=== PATIENT | female | born 1985 | race Two or more races ===

== ENCOUNTER 2018-10-26 15:39 | Inpatient (IN) | payer OTHER ==
[2018-10-26 16:25] VITALS: BMI 29.6
--- NOTE | 2018-10-26 16:35 | HP ---
CIWA Score Nausea/Vomitin Muscle Tremors: 2 Anxiety: 3 Agitation: 2 Paroxysmal Sweats: 1-Minimal Palms Moist Orientation: 1-Uncertain about Date Tacttile Disturbances: 0-None Auditory Disturbances: 1-Very Mild Visual Disturbances: 0-None Headache: 0-None Present CIWA-Ar Total Score: 13 - Admission Criteria OASAS Guidelines: Admission for Medically Managed Detox: Requires at least one of the followin. CIWA greater than 12 2. Seizures within the past 24 hours 3. Delirium tremens within the past 24 hours 4. Hallucinations within the past 24 hours 5. Acute intervention needed for co occurring medical disorder 6. Acute intervention needed for co occurring psychiatric disorder 7. Severe withdrawal that cannot be handled at a lower level of care (continued vomiting, continued diarrhea, abnormal vital signs) requiring intravenous medication and/or fluids 8. 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 Reports her shafting cleaner from ACS case mandated patient to attend. Last detox [facility] in out patient tx for alcohol, last detox May 2018. PMHX: stomach ulcer, ovarian cyst, asthma, heart murmur, hypoglycemia, insomnia, bipolar I, PTSD, manic depression. Currently resides in a longterm. Denies suicidal / homicidal ideation. Reports hx of suicide on 2017 by over consumption alcohol and Meds. Denies hx of seizures, reports frequent EOTH blackouts with last episode Summer 2017. Longest period of sobriety 19 months 2010 - 2011. Exam Limitations: No Limitations - Ebola screening Have you traveled outside of the country in the last 21 days: No Have you had contact with anyone from an Ebola affected area: No Have you been sick,other than usual withdrawal symptoms: No - Review of Systems Constitutional: Changes in sleep, Other (weight gain 10 lb x 1 month) EENT: reports: No Symptoms Reported Respiratory: reports: No Symptoms reported Cardiac: reports: Palpitations, Other (reports chest pain when anxious, no CP this time) GI: reports: Diarrhea, Nausea, Poor Fluid Intake, Vomiting, Other (seen at [facility] for possible GI bleed which resulted negative) : reports: Hematuria Musculoskeletal: reports: Back Pain Integumentary: reports: Other (mild adult acnea) Neuro: reports: Other (" I shake when I dont drink") Endocrine: reports: Increased Thirst Hematology: reports: Anemia Psychiatric: reports: Orientated x3, Anxious, Depressed Other Systems: Reviewed and Negative Patient History - Patient Medical History Hx Anemia: Yes Hx Asthma: Yes Hx Chronic Obstructive Pulmonary Disease (COPD): No Hx Cancer: No Hx Cardiac Disorders: No (heart murmur ) Hx Congestive Heart Failure: No Hx Hypertension: No Hx Hypercholesterolemia: No Hx Pacemaker: No HX Cerebrovascular Accident: No Hx Seizures: No Hx Dementia: No Hx Diabetes: No Hx Gastrointestinal Disorders: Yes (GERD ) Hx Liver Disease: No Hx Genitourinary Disorders: Yes (ovarian cyst b/l ) Hx Sexually Transmitted Disorders: No Hx Renal Disease (ESRD): No Hx Thyroid Disease: No Hx Human Immunodeficiency Virus (HIV): No Hx Hepatitis C: No Hx Depression: Yes Hx Suicide Attempt: Yes Hx Bipolar Disorder: Yes Hx Schizophrenia: No - Patient Surgical History Past Surgical History: Yes Hx Appendectomy: Yes (11 yo, 1996) Hx Section: Yes (x1 2007) - PPD History Previous Implant?: No Documented Results: Negative w/o proof Implanted On Prior R Admission?: No PPD to be Administered?: Yes - Reproductive History Patient is a Female of Child Bearing Age (11 -55 yrs old): Yes Last Menstrual Period: 10/26/18 Patient : No - Smoking Cessation Smoking history: Current every day smoker Have you smoked in the past 12 months: Yes Aproximately how many cigarettes per day: 20 Hx Chewing Tobacco Use: No Initiated information on smoking cessation: Yes 'Breaking Loose' booklet given: 10/26/18 - Substance & Tx. History Hx Alcohol Use: Yes Hx Substance Use: Yes Substance Use Type: Alcohol, Marijuana Hx Substance Use Treatment: Yes (last detox May 2018 [facility] ) - Substances Abused Alcohol Route: Oral Frequency: Daily Amount used: 1 1/2 pint liquor Age of first use: 15 Date of Last Use: 10/26/18 marijuana Route: Smoking Frequency: 1-2 times per week Age of first use: 14 Date of Last Use: 10/25/18 Family Disease History - Family Disease History Family Disease History: Diabetes: Father () Admission Physical Exam [facility] - Vital Signs Vital Signs: Vital Signs - 24 hr 10/26/18 16:22 Temperature 97.7 F Pulse Rate 115 H Respiratory 20 Rate Blood Pressure 129/80 - Physical General Appearance: Yes: Appropriately Dressed, Sweating, Anxious HEENTM: Yes: EOMI, Hearing grossly Normal, Normal ENT Inspection, Pharynx Normal , Other (dry mucous memebranes) Respiratory: Yes: Chest Non-Tender, Lungs Clear, Normal Breath Sounds, No Respiratory Distress, No Accessory Muscle Use Neck: Yes: Within Normal Limits Breast: Yes: Breast Exam Deferred Cardiology: Yes: Regular Rhythm, Tachycardia Abdominal: Yes: Normal Bowel Sounds, Non Tender, Flat, Soft Genitourinary: Yes: Within Normal Limits Back: Yes: Normal Inspection Musculoskeletal: Yes: full range of Motion, Gait Steady, Pelvis Stable Extremities: Yes: Normal Capillary Refill, Normal Inspection, Normal Range of Motion Neurological: Yes: 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 NML intact, Fully Oriented, Alert, Motor Strength 5/5, Depressed Affect Integumentary: Yes: Normal Color, Dry, Warm Lymphatic: Yes: Within Normal Limits - Diagnostic (1) Alcohol dependence with withdrawal, uncomplicated Current Visit: Yes Status: Acute (2) Asthma Current Visit: Yes Status: Chronic Qualifiers: Asthma severity: unspecified severity Asthma persistence: unspecified Asthma complication type: unspecified Qualified Code(s): J45.909 - Unspecified asthma, uncomplicated (3) Anxious mood Current Visit: Yes Status: Acute (4) Nicotine dependence Current Visit: Yes Status: Acute Qualifiers: Nicotine product type: cigarettes (5) Marijuana dependence Current Visit: Yes Status: Acute (6) Psychiatric disorder Current Visit: Yes Status: Acute Comment: on seroquel and remeron Cleared for Admission [facility] - Detox or Rehab [facility] Level of Care: Medically Managed Detox Regimen/Protocol: Librium [facility] Breath Alcohol Content Breath Alcohol Content: 0.278 Urine Pregancy Test - Result Urine Test Results: Negative- NO Line Present Urine Drug Screen - Results Drug Screen Negative: No Urine Drug Screen Results: THC-Marijuana Inpatient Rehab Admission - Rehab Decision to Admit Inpatient rehab admission?: No
[2018-10-26] MEDS ORDERED: MAGNESIUM CITRATE 300 ML BOTTLE PO PRN (16:56)
[2018-10-26] MEDS ORDERED: ACETAMINOPHEN 325 MG TABLET (FP) PO PRN (16:56)
[2018-10-26] MEDS ORDERED: P-EPHED 60MG/TRIPROLIDI 2.5MG TABLET PO PRN (16:56)
[2018-10-26] MEDS ORDERED: MAGNESIUM HYDROX 2400MG/30ML ORAL SUSPENSION 30 ML CUP PO PRN (16:56)
[2018-10-26] MEDS ORDERED: LOPERAMIDE HCL 2 MG CAPSULE PO PRN (16:56)
[2018-10-26] MEDS ORDERED: MENTHOL/PHENOL 1 EACH UD MM PRN (16:56)
[2018-10-26] MEDS ORDERED: MAG HYDROX/AL HYDROX/SIMETH 30 ML UNIT-DOSE CUP PO PRN (16:56)
[2018-10-26] MEDS ORDERED: guaiFENesin/D-METHORPHAN HB 10 ML UNIT-DOSE CUPS PO PRN (16:56)
[2018-10-26] MEDS ORDERED: NICOTINE POLACRILEX 2 MG GUM BC PRN (16:56)
[2018-10-26] MEDS ORDERED: IBUPROFEN 400 MG TABLET (FP) PO PRN (16:56)
[2018-10-26] MEDS ORDERED: ALBUTEROL SO4 8 GM HFA INHALER IH PRN (17:00)
[2018-10-26] MEDS ORDERED: ALBUTEROL SO4 2.5/IPRATROPIUM 0.5 INH SOL 3 ML VIAL.NEB. NEB PRN (17:44)
[2018-10-26] MEDS ORDERED: cloNIDine HCL 0.1 MG TABLET PO ONE (17:45)
[2018-10-26] MEDS: chlordiazePOXIDE HCL 25 MG CAPSULE PO PRN (18:42)
[2018-10-26] MEDS: chlordiazePOXIDE HCL 25 MG CAPSULE PO SCH (22:31)
[2018-10-26] MEDS: MELATONIN 5 MG TABLETS PO PRN (22:31)
[2018-10-26] MEDS: THIAMINE HCL 100 MG TABLET (FP) PO SCH (22:31)
[2018-10-26] MEDS: hydrOXYzine PAMOATE 50 MG CAPSULE (FP) PO PRN (23:36)
[2018-10-27] MEDS: chlordiazePOXIDE HCL 25 MG CAPSULE PO SCH ×4 (05:49→22:09)
--- NOTE | 2018-10-27 07:36 | CONSULT ---
[facility] Psychiatric Consult - Data Date of interview: 10/27/18 Admission source: [facility] Identifying data: This is a 33 years old female, single mother of two, homeless , unemployed, on PA support, with psychiatric hospitalization history, history of Bipolar Disorder, with history of nicotine, alcohol and marijuana dependence is here reporting Alcohol withdeawal symptoms and seeking detox. Substance Abuse History: Smoking history: Current every day smoker. Have you smoked in the past 12 months: Yes. Aproximately how many cigarettes per day: 20. Hx Chewing Tobacco Use: No. Initiated information on smoking cessation: Yes. 'Breaking Loose' booklet given: 10/26/18. - Substance & Tx. History. Hx Alcohol Use: Yes. Hx Substance Use: Yes. Substance Use Type: Alcohol, Marijuana. Hx Substance Use Treatment: Yes (last detox May 2018 [facility] ). - Substances Abused. Alcohol. Route: Oral. Frequency: Daily. Amount used: 1 1/2 pint liquor. Age of first use: 15. Date of Last Use: 10/26/18. marijuana. Route: Smoking. Frequency: 1-2 times per week. Age of first use: 14. Date of Last Use: 10/25/18 Medical History: Asthma history Psychiatric History: Patient reports history of Bipolar Disorder and PTSD, reports history of psychiatric hospitalizations with most recent one at [facility] on for safety, Patient reports history of suicidal attempts by OD and Alcohol with most recent time on , denies suicidfal, homicidal ideation at [facility] time, Patient reports taking prior to admission: Remerone 30mg po qhs. Seroquel 200mg po qhs Physical/Sexual Abuse/Trauma History: Unclear Additional Comment: Remerone 30mg po qhs. Seroquel 200mg po qhs Mental Status Exam - Mental Status Exam Alert and Oriented to: Person Cognitive Function: Fair Patient Appearance: Unkempt Mood: Sad Affect: Mood Congruent Patient Behavior: Cooperative Speech Pattern: Appropriate, Delayed Voice Loudness: Mildly Soft/Quiet Thought Process: Goal Oriented Thought Disorder: Being Controlled Hallucinations: Denies Suicidal Ideation: Denies Homicidal Ideation: Denies Insight/Judgement: Fair Sleep: Difficulty falling asleep Appetite: Fair Muscle strength/Tone: Mild Hypotonicity Gait/Station: Shuffling Additional Comments: Remerone 30mg po qhs. Seroquel 200mg po qhs. Haldol 1mg po prn q4 for anxiety Psychiatric Findings - Problem List ([place] 1, 2,3) (1) Alcohol dependence with withdrawal, uncomplicated Current Visit: Yes Status: Acute (2) Marijuana dependence Current Visit: Yes Status: Acute (3) Nicotine dependence Current Visit: Yes Status: Acute Qualifiers: Nicotine product type: cigarettes (4) Asthma Current Visit: Yes Status: Chronic Qualifiers: Asthma severity: unspecified severity Asthma persistence: unspecified Asthma complication type: unspecified Qualified Code(s): J45.909 - Unspecified asthma, uncomplicated - Initial Treatment Plan Initial Treatment Plan: Remerone 30mg po qhs. Seroquel 200mg po qhs. Haldol 1mg po prn q4 for anxiety
[2018-10-27] MEDS: hydrOXYzine PAMOATE 50 MG CAPSULE (FP) PO PRN (09:36)
[2018-10-27] MEDS: PRENATAL VITAMINS W/ FOLIC ACID TABLET (FP) PO SCH (10:11)
[2018-10-27] MEDS: NICOTINE 21 MG/24 HOURS TOPICAL PATCH TD SCH (10:11)
[2018-10-27] MEDS: HALOPERIDOL 1 MG TABLET (FP) PO PRN ×2 (10:14→22:09)
[2018-10-27 10:56] LABS: ALBUMIN 3.4 g/dl (3.4-5.0); ALK PHOS 68 U/L (45-117); ANION GAP 3 MMOL/L (8-16); BILIRUBIN,TOTAL 0.7 mg/dL (0.2-1); BLOOD UREA NITROGEN 8 mg/dL (7-18); CALCIUM 8.7 mg/dL (8.5-10.1); CHLORIDE 99 mmol/L (98-107); CO2 34 mmol/L (21-32); CREATININE 0.6 mg/dL (0.55-1.3); GLUCOSE,RANDOM 89 mg/dL (74-106); POTASSIUM 3.5 mmol/L (3.5-5.1); SGOT/AST 64 U/L (15-37); SGPT/ALT 52 U/L (13-61); SODIUM 136 mmol/L (136-145); TOT PROT 6.7 g/dl (6.4-8.2)
[2018-10-27 11:01] LABS: HEMATOCRIT 37.5 % (32.4-45.2); HEMOGLOBIN 12.7 GM/dL (10.7-15.3); MCHC 33.9 g/dl (32.0-36.0); MEAN CELL VOLUME 103.2 fl (80-96); MEAN PLT VOLUME 8.7 fl (7.5-11.1); PLATELET COUNT 189 K/MM3 (134-434); RBC 3.64 M/mm3 (3.60-5.2); RDW 14.1 % (11.6-15.6); WHITE BLOOD COUNT 3.4 K/mm3 (4.0-10.0)
--- NOTE | 2018-10-27 12:01 | PN ---
S CIWA - CIWA Score Nausea/Vomitin-No Nausea/No Vomiting Muscle Tremors: 3 Anxiety: 3 Agitation: 3 Paroxysmal Sweats: 3 Orientation: 0-Oriented Tacttile Disturbances: 0-None Auditory Disturbances: 0-None Visual Disturbances: 0-None Headache: 0-None Present CIWA-Ar Total Score: 12 [facility] Progress Note (SOAP) Subjective: muscle aches sweats anxiety Objective: 10/27/18 12:00 Vital Signs Temperature 98.1 F 10/27/18 07:00 Pulse Rate 75 10/27/18 07:00 Respiratory Rate 16 10/27/18 07:00 Blood Pressure 121/91 10/27/18 07:00 O2 Sat by Pulse Oximetry (%) Laboratory Tests 10/27/18 10/27/18 10/27/18 05:51 08:00 08:00 WBC 3.4 L RBC 3.64 Hgb 12.7 Hct 37.5 MCV 103.2 H MCH 35.0 H MCHC 33.9 RDW 14.1 Plt Count 189 MPV 8.7 Sodium 136 Potassium 3.5 Chloride 99 Carbon Dioxide 34 H Anion Gap 3 L BUN 8 Creatinine 0.6 Creat Clearance w eGFR > 60 POC Glucometer 121 Random Glucose 89 Calcium 8.7 Total Bilirubin 0.7 AST 64 H ALT 52 Alkaline Phosphatase 68 Total Protein 6.7 Albumin 3.4 RPR Titer 10/27/18 08:00 WBC RBC Hgb Hct MCV MCH MCHC RDW Plt Count MPV Sodium Potassium Chloride Carbon Dioxide Anion Gap BUN Creatinine Creat Clearance w eGFR POC Glucometer Random Glucose Calcium Total Bilirubin AST ALT Alkaline Phosphatase Total Protein Albumin RPR Titer Nonreactive aaox3 ambulating no acute distress Assessment: 10/27/18 12:01 withdrawal sx Plan: continue detox increase fluids flexiril 10mg prn
[2018-10-27] MEDS: CYCLOBENZAPRINE HCL 10 MG TABLET (FP) PO PRN ×2 (15:53→22:09)
[2018-10-27] MEDS: chlordiazePOXIDE HCL 25 MG CAPSULE PO PRN (19:43)
[2018-10-27] MEDS: MELATONIN 5 MG TABLETS PO PRN (22:09)
[2018-10-27] MEDS: MIRTAZAPINE 30 MG TABLET (FP) PO SCH (22:10)
[2018-10-27] MEDS: THIAMINE HCL 100 MG TABLET (FP) PO SCH (22:10)
[2018-10-27] MEDS: QUEtiapine FUMARATE 200 MG TABLET PO SCH (22:10)
--- NOTE | 2018-10-28 02:38 | EKG ---
Test Reason : Blood Pressure : / mmHG Vent. Rate : 095 BPM Atrial Rate : 095 BPM P-R Int : 120 ms QRS Dur : 084 ms QT Int : 342 ms P-R-T Axes : 023 081 042 degrees QTc Int : 429 ms NORMAL SINUS RHYTHM NORMAL ECG NO PREVIOUS ECGS AVAILABLE Confirmed by KOKO LAMAS MD ([id number]) on 10/28/2018 2:38:22 AM Referred By: BENJAMIN CARDOZA Confirmed By:KOKO LAMAS MD
[2018-10-28] MEDS: chlordiazePOXIDE HCL 25 MG CAPSULE PO SCH ×3 (05:52→16:30)
[2018-10-28] MEDS: CYCLOBENZAPRINE HCL 10 MG TABLET (FP) PO PRN (05:54)
[2018-10-28] MEDS: HALOPERIDOL 1 MG TABLET (FP) PO PRN ×3 (05:55→16:30)
[2018-10-28] MEDS: NICOTINE 21 MG/24 HOURS TOPICAL PATCH TD SCH (10:28)
[2018-10-28] MEDS: PRENATAL VITAMINS W/ FOLIC ACID TABLET (FP) PO SCH (10:28)
--- NOTE | 2018-10-28 10:35 | PN ---
S CIWA - CIWA Score Nausea/Vomitin-No Nausea/No Vomiting Muscle Tremors: 3 Anxiety: 3 Agitation: 3 Paroxysmal Sweats: 3 Orientation: 0-Oriented Tacttile Disturbances: 0-None Auditory Disturbances: 0-None Visual Disturbances: 0-None Headache: 0-None Present CIWA-Ar Total Score: 12 BHS Progress Note (SOAP) Subjective: skin itchy sweats tired the seroquel is making me too sedated Objective: 10/28/18 10:33 Vital Signs Temperature 97.9 F 10/28/18 09:32 Pulse Rate 79 10/28/18 09:32 Respiratory Rate 18 10/28/18 09:32 Blood Pressure 118/77 10/28/18 09:32 O2 Sat by Pulse Oximetry (%) Laboratory Tests 10/27/18 10/27/18 10/27/18 05:51 08:00 08:00 WBC 3.4 L RBC 3.64 Hgb 12.7 Hct 37.5 MCV 103.2 H MCH 35.0 H MCHC 33.9 RDW 14.1 Plt Count 189 MPV 8.7 Sodium 136 Potassium 3.5 Chloride 99 Carbon Dioxide 34 H Anion Gap 3 L BUN 8 Creatinine 0.6 Creat Clearance w eGFR > 60 POC Glucometer 121 Random Glucose 89 Calcium 8.7 Total Bilirubin 0.7 AST 64 H ALT 52 Alkaline Phosphatase 68 Total Protein 6.7 Albumin 3.4 RPR Titer 10/27/18 10/28/18 08:00 05:51 WBC RBC Hgb Hct MCV MCH MCHC RDW Plt Count MPV Sodium Potassium Chloride Carbon Dioxide Anion Gap BUN Creatinine Creat Clearance w eGFR POC Glucometer 119 Random Glucose Calcium Total Bilirubin AST ALT Alkaline Phosphatase Total Protein Albumin RPR Titer Nonreactive aaox3 ambulating no acute distress Assessment: 10/28/18 10:34 withdrawal sx Plan: increase fluids aveeno soap benadryl 25mg x one continue detox
[2018-10-28] MEDS ORDERED: diphenhydrAMINE HCL 25 MG CAPSULE (FP) PO ONE (10:45)
[2018-10-28] MEDS: COLLOIDAL OATMEAL 1 BAR EACH TP PRN (10:56)
[2018-10-28] MEDS: hydrOXYzine PAMOATE 50 MG CAPSULE (FP) PO PRN (18:25)
[2018-10-28] MEDS: MIRTAZAPINE 30 MG TABLET (FP) PO SCH (22:13)
[2018-10-28] MEDS: chlordiazePOXIDE 5 MG CAPSULE PO SCH (22:13)
[2018-10-28] MEDS: QUEtiapine FUMARATE 200 MG TABLET PO SCH (22:13)
[2018-10-28] MEDS: THIAMINE HCL 100 MG TABLET (FP) PO SCH (22:13)
[2018-10-29] MEDS: chlordiazePOXIDE 5 MG CAPSULE PO SCH ×3 (05:52→17:36)
[2018-10-29] MEDS: CYCLOBENZAPRINE HCL 10 MG TABLET (FP) PO PRN ×2 (10:42→22:12)
[2018-10-29] MEDS: PRENATAL VITAMINS W/ FOLIC ACID TABLET (FP) PO SCH (10:42)
[2018-10-29] MEDS: HALOPERIDOL 1 MG TABLET (FP) PO PRN ×2 (10:42→22:12)
[2018-10-29] MEDS: NICOTINE 21 MG/24 HOURS TOPICAL PATCH TD SCH (10:43)
--- NOTE | 2018-10-29 11:56 | PN ---
BHS Progress Note (SOAP) Subjective: feeling better sweats Objective: 10/29/18 11:55 Vital Signs Temperature 97.7 F 10/29/18 09:02 Pulse Rate 87 10/29/18 09:02 Respiratory Rate 18 10/29/18 09:02 Blood Pressure 141/88 10/29/18 09:02 O2 Sat by Pulse Oximetry (%) aaox3 ambulating no acute distress Assessment: 10/29/18 11:55 mild withdrawal sx Plan: continue detox increase fluids d/c in am
[2018-10-29] MEDS: THIAMINE HCL 100 MG TABLET (FP) PO SCH (22:12)
[2018-10-29] MEDS: MIRTAZAPINE 30 MG TABLET (FP) PO SCH (22:12)
[2018-10-29] MEDS: QUEtiapine FUMARATE 200 MG TABLET PO SCH (22:12)
[2018-10-29] MEDS: chlordiazePOXIDE HCL 10 MG CAPSULE PO SCH (22:12)
[2018-10-30] MEDS: COLLOIDAL OATMEAL 1 BAR EACH TP PRN (05:10)
[2018-10-30] MEDS: hydrOXYzine PAMOATE 50 MG CAPSULE (FP) PO PRN (05:11)
[2018-10-30] MEDS: chlordiazePOXIDE HCL 10 MG CAPSULE PO SCH (05:11)
[2018-10-30 06:45] VITALS: BP 131/74; PULSE 106; TEMP 96.6
--- NOTE | 2018-10-30 16:19 | DS ---
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 Pertinent Past History: ASTHMA - Physical Exam Results Vital Signs: Vital Signs Temperature 96.6 F L 10/30/18 06:00 Pulse Rate 106 H 10/30/18 06:00 Respiratory Rate 18 10/30/18 06:00 Blood Pressure 131/74 10/30/18 06:00 O2 Sat by Pulse Oximetry (%) Pertinent Admission Physical Exam Findings: WITHDRAWAL SX Laboratory Tests 10/27/18 10/27/18 10/27/18 05:51 08:00 08:00 WBC 3.4 L RBC 3.64 Hgb 12.7 Hct 37.5 MCV 103.2 H MCH 35.0 H MCHC 33.9 RDW 14.1 Plt Count 189 MPV 8.7 Sodium 136 Potassium 3.5 Chloride 99 Carbon Dioxide 34 H Anion Gap 3 L BUN 8 Creatinine 0.6 Creat Clearance w eGFR > 60 POC Glucometer 121 Random Glucose 89 Calcium 8.7 Total Bilirubin 0.7 AST 64 H ALT 52 Alkaline Phosphatase 68 Total Protein 6.7 Albumin 3.4 RPR Titer 10/27/18 10/28/18 10/29/18 08:00 05:51 05:50 WBC RBC Hgb Hct MCV MCH MCHC RDW Plt Count MPV Sodium Potassium Chloride Carbon Dioxide Anion Gap BUN Creatinine Creat Clearance w eGFR POC Glucometer 119 89 Random Glucose Calcium Total Bilirubin AST ALT Alkaline Phosphatase Total Protein Albumin RPR Titer Nonreactive 10/30/18 05:08 WBC RBC Hgb Hct MCV MCH MCHC RDW Plt Count MPV Sodium Potassium Chloride Carbon Dioxide Anion Gap BUN Creatinine Creat Clearance w eGFR POC Glucometer 114 Random Glucose Calcium Total Bilirubin AST ALT Alkaline Phosphatase Total Protein Albumin RPR Titer - Treatment Hospital Course: Detox Protocol Followed, Detoxed Safely, Responded well, Discharged Condition Good (PER NURSES NOTE) - Medication Discharge Medications: Ambulatory Orders Albuterol Sulfate Inhaler - [Ventolin HFA Inhaler -] 2 puff IH Q4H 10/26/18 Mirtazapine [Remeron -] 30 mg PO HS 10/26/18 Quetiapine Fumarate [Seroquel -] 200 mg PO HS 10/26/18 Mirtazapine [Remeron -] 30 mg PO HS #30 tablet 10/27/18 Quetiapine Fumarate [Seroquel -] 200 mg PO HS #30 tablet 10/27/18 - Diagnosis (1) Alcohol dependence with withdrawal, uncomplicated Status: Acute (2) Nicotine dependence Status: Acute Qualifiers: Nicotine product type: cigarettes Substance use status: in withdrawal Qualified Code(s): F17.213 - Nicotine dependence, cigarettes, with withdrawal (3) Asthma Status: Chronic Qualifiers: Asthma severity: unspecified severity Asthma persistence: unspecified Asthma complication type: unspecified Qualified Code(s): J45.909 - Unspecified asthma, uncomplicated - AMA Did Patient Leave Against Medical Advice: No
== END 2018-10-30 08:38 | disposition home or self-care (01) | DRG 775 ==
LOC: YASAS 15:39 → Y6N 17:24
PROVIDERS: ADMIT Surgery; ATTEND Surgery
PROC: HZ2ZZZZ Detoxification Services for Substance Abuse Treatment (ICD-10-PCS; principal; 2018-10-26)
DX: F10.230 Alcohol dependence with withdrawal, uncomplicated (principal); F12.20 Cannabis dependence, uncomplicated; F17.213 Nicotine dependence, cigarettes, with withdrawal; F41.9 Anxiety disorder, unspecified; J45.909 Unspecified asthma, uncomplicated; R01.1 Cardiac murmur, unspecified; R00.0 Tachycardia, unspecified; N83.202 Unspecified ovarian cyst, left side; N83.201 Unspecified ovarian cyst, right side; K21.9 Gastro-esophageal reflux disease without esophagitis
CPT/HCPCS: 36415; 80053; 82962; 85027; 86593; 87389; 93005; 93010; J0735